=== PATIENT | male | born 1985 | race Caucasian/White ===

== ENCOUNTER 2024-03-08 12:14 | Emergency (ER) | payer OTHER, SELFPAY ==
[2024-03-08 12:26] VITALS: BP 150/91; PULSE 67; RESP 16; TEMP 36.6; O2SAT 100
--- NOTE | 2024-03-08 12:31 | ED.ANXIETY ---
HPI - Anxiety General Chief Complaint: Anxiety Stated Complaint: Anxiety/Tingling/Head Pressure Time Seen by Provider: 03/08/24 12:31 Source: patient Mode of arrival: ambulatory Limitations: no limitations History of Present Illness HPI narrative: 38 y/o male presented for c/o anxiety intermittently for a few weeks. States he experiences head pressure and neck tension, occasional tingling in face, his hands shake, and he feels lightheaded at times. Symptoms started after he was over heated on vacation, when he returned he was evaluated and told labs were normal but his BP is elevated. He is scheduled with a new pcp in 2 weeks. Denies thoughts of SI/HI. Denies diagnosis of anxiety. Has reduced caffeine intake since initial episode, non smoker, limits alcohol. Related Data Allergies Allergy/AdvReac Type Severity Reaction Status Date / Time No Known Allergies Allergy Verified 03/08/24 12:25 Review of Systems Review of Systems: CONSTITUTIONAL: Denies body aches, fever, chills, or sweats. EYES: Denies visual changes CARDIOVASCULAR: Denies chest pain, palpitations, or edema. RESPIRATORY: Denies cough or dyspnea. GASTROINTESTINAL: Denies abdominal pain, nausea, vomiting, or diarrhea. SKIN: Denies rash, itching, or wounds. MUSCULOSKELETAL: Denies back pain, joint pain, or myalgia. NEUROLOGIC: Denies headache, reports intermittent hand tingling PSYCH: Denies depression reports anxiety. All systems reviewed & are unremarkable except as noted in HPI and below PMFSH Comments At time of signature, I have reviewed and agree with nursing past medical, surgical, social and family history unless otherwise noted. Please see nursing chart for further information. There is no relevant family history pertinent to the presenting complaint Exam Narrative: GENERAL: Well-appearing, and in no acute distress. HEAD: Normocephalic, atraumatic. EYES: EOMI. No redness or drainage. Conjunctivae normal. ENT: Mucous membranes pink and moist. No rhinorrhea. TMs normal bilaterally. Throat normal. Uvula midline. NECK: Normal AROM. CHEST: No respiratory distress. Clear to auscultation. HEART: Regular rate and rhythm. No murmur appreciated. Normal peripheral pulses. EXTREMITIES: Normal range of motion. No edema. Bilat Hand tremors. SKIN: Warm, dry, capillary refill normal. Normal skin turgor. NEURO: No focal deficits. Alert and oriented x3. Gait steady. PSYCH: Appears mildly anxious, hand tremors Course Course Emergency Course: Patient is aware of diagnosis, understands and agrees to treatment plan. Anticipatory guidance given. Patient agrees to follow-up as directed and is aware of reasons to seek care at the emergency department. Portions of this record may have been created with voice recognition software Level of Care: Express Care Visit Vital Signs Vital signs: Vital Signs Temperature 97.8 F 03/08/24 12:26 Pulse Rate 67 03/08/24 12:26 Respiratory Rate 16 03/08/24 12:26 Blood Pressure 150/91 H 03/08/24 12:26 Pulse Oximetry 100 03/08/24 12:26 Oxygen Delivery Room Air 03/08/24 12:26 Temperature 97.8 F 03/08/24 12:26 Pulse Rate 67 03/08/24 12:26 Respiratory Rate 16 03/08/24 12:26 Blood Pressure 150/91 H 03/08/24 12:26 Pulse Oximetry 100 03/08/24 12:26 Oxygen Delivery Room Air 03/08/24 12:26 MDM - Anxiety MDM Narrative Medical decision making narrative: Discussed physical exam findings, Advised supportive measures, and reviewed signs/symptoms to go to the ER. Discussed transfer to ER at this time, however he does not want to go at this time. Discussed Rx hydroxyzine prn until he can be seen by new pcp, and if sx worsen he will go to the ER. Pt is appropriate for outpt treatment and f/u. Differential Diagnosis Differential diagnosis: Likely hyperventilation, panic disorder, acute anxiety and other (anemia, dehydration, sepsis, arrhythmia, BPPV, labyrinthitis, vestibular ne
== END 2024-03-08 13:06 | disposition home or self-care (01) ==
PROVIDERS: Emergency Provider Nurse Practitioner Family
DX: F41.9 Anxiety disorder, unspecified (principal)
CPT/HCPCS: 99213; G0463

== ENCOUNTER 2024-03-19 08:16 | Outpatient (CLI) | payer OTHER, SELFPAY ==
[2024-03-19 20:34] LABS: Alanine Aminotransferase 44 U/L (6-50); Albumin Level 4.7 g/dL (3.5-5.1); Alkaline Phosphatase 51 U/L (38-126); Anion Gap 16 mmol/L (4-12); Aspartate Amino Transferase 58 U/L (17-59); Bilirubin,Total 0.6 mg/dL (0.2-1.3); Blood Urea Nitrogen 16 mg/dL (9-20); Calcium 9.6 mg/dL (8.4-10.2); Carbon Dioxide 27 mmol/L (22-30); Chloride 103 mmol/L (98-107); Cholesterol 207 mg/dL (0-200); Estimated Glomerular Filt Rate > 60; Glucose 98 mg/dL (65-110); HDL Direct 37 mg/dL; Potassium 4.2 mmol/L (3.4-5.0); Sodium 146 mmol/L (137-145); Triglycerides 136 mg/dL (<150)
[2024-03-19 20:39] LABS: Hematocrit 46.6 % (42.0-52.0); Mean Corpuscular HGB Conc 32.2 g/dl (32-36); Mean Corpuscular Hemoglobin 28.9 pg (26-34); Mean Corpuscular Volume 89.8 fl (80-100); Mean Platelet Volume 10.2 fl (7.4-10.4); Platelet Count Result 232 k/mm3 (150-375); Red Blood Count 5.19 M/mm3 (4.6-6.20); Red Cell Distribution Width 12.4 % (11.5-14.5); White Blood Count 5.7 K/mm3 (4.5-10.0)
[2024-03-19 20:45] LABS: LDL Cholesterol Direct 130 mg/dL
[2024-03-19 22:55] LABS: Free T4 Free Thyroxine 1.35 ng/mL (0.78-2.19); Vitamin D 25 Hydroxy 34.7 ng/mL
== END 2024-03-19 08:17 | disposition home or self-care (01) ==
PROVIDERS: PCP Nurse Practitioner Adult Health; Visit Provider Nurse Practitioner Adult Health
DX: F41.9 Anxiety disorder, unspecified (principal); R53.83 Other fatigue; E07.9 Disorder of thyroid, unspecified; Z13.220 Encounter for screening for lipoid disorders; Z13.228 Encounter for screening for other metabolic disorders; Z13.21 Encounter for screening for nutritional disorder; Z13.9 Encounter for screening, unspecified
CPT/HCPCS: 36415; 80053; 80061; 82306; 82607; 84439; 84443; 85027

== ENCOUNTER 2025-04-08 10:18 | Outpatient (CLI) | payer OTHER, SELFPAY ==
[2025-04-08 18:45] LABS: Alanine Aminotransferase 29 U/L (6-50); Albumin Level 4.7 g/dL (3.5-5.1); Alkaline Phosphatase 49 U/L (38-126); Anion Gap 9 mmol/L (4-12); Aspartate Amino Transferase 66 U/L (17-59); Bilirubin,Total 0.7 mg/dL (0.2-1.3); Blood Urea Nitrogen 17 mg/dL (9-20); Calcium 9.6 mg/dL (8.4-10.2); Carbon Dioxide 25 mmol/L (22-30); Chloride 105 mmol/L (98-107); Cholesterol 226 mg/dL (0-200); Estimated Glomerular Filt Rate > 60; Glucose 85 mg/dL (65-110); HDL Direct 33 mg/dL; Potassium 4.2 mmol/L (3.4-5.0); Sodium 139 mmol/L (137-145); Total Protein 8.2 g/dL (6.3-8.2); Triglycerides 153 mg/dL (<150)
== END 2025-04-08 10:19 | disposition home or self-care (01) ==
LOC: ANHBWCLAB 10:20
PROVIDERS: PCP Nurse Practitioner Adult Health; Visit Provider Nurse Practitioner Adult Health
DX: Z00.00 Encounter for general adult medical examination without abnormal findings (principal)
CPT/HCPCS: 36415; 80053; 80061